=== PATIENT | female | born 1960 | race Caucasian/White ===

== ENCOUNTER 2017-06-28 09:45 | Inpatient (IN) | payer BC ==
[2017-06-27 13:40] LABS: WBC (NOT ORDERED) (RFLEX) 0 (0-5)
[2017-06-27 13:59] LABS: BASOPHILS 0.5 %; BASOPHILS ABSOLUTE 0.03 10/3/uL (0.0-0.16); EOSINOPHILS 4.5 %; EOSINOPHILS ABSOLUTE 0.29 10/3/uL (0.0-0.53); HEMATOCRIT 40.1 % (36.0-48.0); HEMOGLOBIN 13.3 g/dL (12.0-16.0); IMMATURE GRANULOCYTES 0.3 %; IMMATURE GRANULOCYTES ABSOLUTE 0.02 10/3/uL (0.0-0.11); LYMPHOCYTES 20.9 %; LYMPHOCYTES ABSOLUTE 1.35 10/3/uL (0.67-4.30); MANUAL DIFF NO %; MEAN CORPUS HGB CONC 33.2 g/dL (32.0-36.0); MEAN CORPUSCULAR HEMOGLOB 29.2 pg (26.0-34.0); MEAN CORPUSCULAR VOLUME 87.9 fL (80-100); MEAN PLATELET VOLUME 9.5 fL (9.2-13.0); MONOCYTES 9.1 %; MONOCYTES ABSOLUTE 0.59 10/3/uL (0.21-1.20); NEUTROPHILS 64.7 %; NEUTROPHILS ABSOLUTE 4.17 10/3/uL (2.02-8.40); PLATELET COUNT 231 10/3/uL (150-400); RBC DISTRIBUTION WIDTH 14.2 % (12.0-16.0); RED CELL COUNT 4.56 10/6/uL (4.0-5.6); WHITE BLOOD CELLS 6.5 10/3/uL (4.5-10.5)
[2017-06-27 14:06] LABS: PROTIME (NOT ORD) 13.1 SEC (12.0-14.5)
[2017-06-27 14:11] LABS: BUN (BLOOD UREA NITROGEN) 18 MG/DL (6-23); CALCIUM, SERUM 9.5 MG/DL (8.5-10.4); CHLORIDE, SERUM 109 MMOL/L (96-112); CO2 (CARBON DIOXIDE) 26 MMOL/L (24-34); CREATININE 0.86 MG/DL (0.55-1.02); GFR AFRICAN AMERICAN 86 ML/MIN (>=60); GFR NON AFRICAN AMERICAN 74 ML/MIN (>=60); GLUCOSE, SERUM 93 MG/DL (60-99); POTASSIUM, SERUM 4.5 MMOL/L (3.5-5.3); SODIUM, SERUM 143 MMOL/L (135-148)
[2017-06-27 14:29] LABS: ASCORBIC ACID (UR NOT ORDER) NEG (NEG); BILIRUBIN, URINE NEGATIVE (NEG); KETONE, URINE NEGATIVE (NEG); LEUKOCYTE ESTERASE(NOT OR NEG (NEG)
[~2017-06-28] VITALS: Ht 162.6 cm; Wt 82.7 kg
--- NOTE | ~2017-06-28 | OP ---
Record Of Operation [facility] [address] [place]. [address] NAME: SERJIO MENDEZ : 58 STATUS : ADM IN PAT#: [id number] AGE: 57 ADM/REG DATE : 06/29/17 MR#: [id number] REPORT SERV DATE: 06/29/17 DICTATED BY: ALBERTO ARORA DATE: 06/29/17 REPORT STATUS : Draft TRANSCRIBED BY: MODL DATE: 06/29/17 DATE OF PROCEDURE: 06/29/2017 PREPROCEDURE DIAGNOSIS: Critical high-grade right internal carotid artery stenosis. POSTOPERATIVE DIAGNOSIS: 90% right internal carotid artery stenosis. PROCEDURE PERFORMED: Right eversion carotid endarterectomy with intraoperative ultrasound guidance and permissive hypertension. ANESTHESIA: Local MAC. COMPLICATIONS: None. INDICATION FOR PROCEDURE: Secondary to this very pleasant 57-year-old female presenting with evidence of high-grade right internal carotid artery obstruction, recommendations were made for endarterectomy. The patient is clinically asymptomatic, however, high-grade lesions noted. Risks and benefits discussed including stroke, , myocardial infarction. She has understanding of the risks and wishes to proceed secondary to stroke reduction possibility. Consent was given. DETAILS OF THE PROCEDURE: The patient was brought to the endovascular operating room, placed in supine position, prepped and draped in a routine sterile fashion with attention to the right neck. Intraoperative ultrasound was utilized to locate the common carotid artery and its bifurcation. This was marked carefully on the patient's skin. Pictures were taken and placed on the chart. After appropriate local and MAC anesthesia, incision was then made in the right neck based off the ultrasound findings. Dissection proceeded down through the skin and subcutaneous tissues to the common carotid artery. The external carotid artery was then dissected free. 5000 units of heparin were given and allowed to circulate. The external was loop controlled as well as the common and the internal carotid artery was then skeletonized. There was a very large bulbous type of region of the proximal internal carotid artery that narrowed down to a small tapered area. The permissive hypertension was then instituted driving systolic blood pressure over 200 and maintaining this during the clamp time. The distal ICA was clamped followed by the common. External was loop controlled. The internal carotid artery was then amputated from the bulb to create a wide patch. Eversion technique was then utilized to remove the plaque and debris from the internal carotid artery to the mid segment. A large plaque was removed. This was approximately 90% stenosed. Next the internal was irrigated clean as well as external and the common. The external and the common appeared to be fairly normal. No endarterectomy was completed in this area and then the end-to-side anastomosis was then performed with a 6-0 Prolene on a C1 needle running continuous stitch with 1 single patch suture to control minor hemorrhage. Flushing maneuvers were performed prior to closure. The patient maintained normal neurologic integrity during the clamp time and after the release of the clamps. At this point, there were tubular areas on the artery that had some persistent bleeding that were controlled with Record Of Operation [address] [place]. [address] NAME: SERJIO MENDEZ : 58 STATUS : ADM IN [facility]#: [id number] AGE: 57 ADM/REG DATE : 06/29/17 MR#: [id number] REPORT SERV DATE: 06/29/17 DICTATED BY: ALBERTO ARORA DATE: 06/29/17 REPORT STATUS : Draft TRANSCRIBED BY: DIANA DATE: 06/29/17 small clip and there was some persistent bleeding up near the distal ICA dissection. Three small clips were placed on the tissues just between the 2 vessels. Bleeding was controlled with this. Surgicel and FloSeal were utilized to promote local hemostasis. Once that was completed, the platysma was then closed with Vicryl and Monocryl for the skin. Steri-Strips dressings were applied. The patient tolerated the procedure well. CL/DIANA Alberto Arora M.D. / [id number] CC: Flaquito Vilchis
[~2017-06-28 09:45] MED LIST: ALEVE220 MG PO; B121000P IM; DIVIGEL0.25 MG TD; HAIR SKIN PO; L-LYSINE500 M1 PO; LIPITOR40 PO; PLAVIX PO; PROMETRIUM PO; VITAMIN D31000 UNIT PO; ZINC PO; ZYRTEC ALLGY10 MG PO
[2017-06-29 10:42] LABS: HEMATOCRIT 36.5 % (36.0-48.0)
[2017-06-30] MEDS ORDERED: PCET PO (11:49)
[2017-06-30] MEDS ORDERED: ASAB PO (12:24)
== END 2017-06-30 12:46 | disposition home or self-care (01) | DRG 39 ==
LOC: ENRESERVDT → ENRESERV → ENRESERVTM → SDC/OF 06-29 05:49 → CVICU 06-29 05:49
PROVIDERS: Specialist
PROC: 03CK0ZZ Extirpation of Matter from Right Internal Carotid Artery, Open Approach (ICD-10-PCS; principal; 2017-06-29 07:45)
DX: I65.21 Occlusion and stenosis of right carotid artery (principal); R63.4 Abnormal weight loss; R25.1 Tremor, unspecified; Z87.891 Personal history of nicotine dependence; Z90.49 Acquired absence of other specified parts of digestive tract; Z90.710 Acquired absence of both cervix and uterus; Z80.8 Family history of malignant neoplasm of other organs or systems; Z79.899 Other long term (current) drug therapy
CPT/HCPCS: 71020; 80048; 81001; 85014; 85018; 85025; 85610; 87641; 88304; 93005; A9270-GY; J0690; J1200; J2250; J2370; J3010